=== PATIENT | female | born 1980 | race African-American/Black ===

== ENCOUNTER 2020-05-20 23:02 | Emergency (ER) | payer SELFPAY ==
[~2020-05-20] VITALS: Ht 172.7 cm; Wt 68.6 kg
--- NOTE | 2020-05-20 23:48 | NUR ---
ABD PAIN STARTING TODAY BILAT LOWER QUADS. PT HAS ROUNDED ABDOMEN THAT IS VERY FIRM UPON PALPATION, DENIES , N/V/D
[2020-05-21 00:02] LABS: MEAN CORPUSCULAR HEMOGLOBIN 19.8 pg (27.0-34.8); MEAN CORPUSCULAR HGB CONC 30.5 g/dL (32.4-35.8); MEAN PLATELET VOLUME 7.5 fL (7.4-10.4); PLATELET COUNT 424 x10^3/uL (130-400); RED BLOOD COUNT 4.75 x10^6/uL (3.82-5.3); RED CELL DISTRIBUTION WIDTH 18.3 % (9.6-15.2)
[2020-05-21 00:07] LABS: ALBUMIN 3.6 g/dL (3.4-5.0); ANION GAP 3 mmol/L (5-15); CALCIUM 9.2 mg/dL (8.5-10.1); CHLORIDE 106 mmol/L (98-107); CREATININE 0.62 mg/dL (0.55-1.02)
[2020-05-21 00:29] LABS: BASOS#(MANUAL) 0.05 x10^3/uL (0-0.1); BASOS% (MANUAL) 1 % (0-1); EOS#(MANUAL) 0.14 x10^3/uL (0.0-0.4); EOS% (MANUAL) 3 % (1-7); LYMPH#(MANUAL) 2.59 x10^3/uL (1-3.4); LYMPHS% (MANUAL) 54 % (22-44); MD YES; MONOS#(MANUAL) 0.29 x10^3/uL (0.3-2.7); MONOS% (MANUAL) 6 % (2-9); SEG#(MANUAL) 1.73 x10^3/uL (1.8-6.8); SEGS% (MANUAL) 36 % (42-75)
[2020-05-21 00:30] LABS: <PLATELET ESTIMATE> ADEQUATE; ANISOCYTOSIS 1+; HYPOCHROMIA 2+; LARGE PLATELETS 1+; MICROCYTOSIS 2+; PMNS WITH VACUOLES 1+
[2020-05-21 00:31] LABS: ACANTHOCYTES 1+; OVALOCYTES 1+; TEAR DROPS 1+
[2020-05-21 00:32] LABS: POLYCHROMASIA 1+
--- NOTE | 2020-05-21 00:36 | NUR ---
BREAK RN: ORDERED CT. PIV PLACED. PT TO CT
[2020-05-21] MEDS ORDERED: OMNIPAQUE 350 MG/ML, 100ML BOTTLE ONE (00:53)
[2020-05-21 01:58] VITALS: BP 132/68
== END 2020-05-21 02:09 | disposition home or self-care (01) ==
LOC: ED 05-21 01:46
DX: D25.1 Intramural leiomyoma of uterus (principal)
CPT/HCPCS: 36415; 74177; 76857; 80048; 82040; 84703; 85025; 99285; Q9967